=== PATIENT | male | born 1995 | race Caucasian/White ===

== ENCOUNTER 2019-10-30 08:02 | Emergency (ER) | payer SELFPAY ==
[~2019-10-30] VITALS: Ht 175.3 cm; Wt 73.0 kg
[2019-10-30] MEDS ORDERED: LIDOCAINE HCL 1% 20ML VIAL (Pyxis) INJ INFIL ONE (10:00)
[2019-10-30] MEDS ORDERED: CEFTRIAXONE SODIUM 1 G/VIAL IM ONE (10:00)
[2019-10-30 10:27] VITALS: BP 120/78
== END 2019-10-30 10:27 | disposition home or self-care (01) ==
LOC: ER 08:26
DX: L70.0 Acne vulgaris (principal); J34.0 Abscess, furuncle and carbuncle of nose
CPT/HCPCS: 96372; 99283; J0696; J3490